=== PATIENT | male | born 1955 | race Caucasian/White ===

== ENCOUNTER 2023-04-20 13:46 | Inpatient (IN) | payer MEDICARE, OTHER ==
[2023-04-20] MEDS ORDERED: Non-Formulary Item 1 EACH (Oxycodone Hcl/Acetaminophen [Oxycodone-Acetaminophen 10-325] 1 PO PRN (15:24)
[2023-04-20] MEDS ORDERED: ACETAMINOPHEN PO PRN (15:24)
[2023-04-20] MEDS ORDERED: OXYCODONE HCL PO PRN (15:24)
[2023-04-20] MEDS ORDERED: [UNRECOGNIZED DRUG - OTHER] PO PRN (15:24)
[2023-04-20] MEDS ORDERED: Colchicine 0.6 MG TAB PO PRN (15:24)
[2023-04-20] MEDS ORDERED: cefTRIAXone (ROCEPHIN) 2 GM VIAL IVPB SCH (15:30)
[2023-04-20] MEDS ORDERED: Nystatin Powder 15 GM BOT TOP PRN (15:57)
[2023-04-20] MEDS ORDERED: Torsemide 20 MG TAB PO PRN (16:04)
[2023-04-20] MEDS: HYDROcodone/Acetaminophen 10/325 mg Tablet PO PRN (17:21)
[2023-04-20] MEDS: Apixaban 5 MG TAB PO SCH (19:59)
[2023-04-20] MEDS: Pregabalin 75 MG CAP PO SCH (20:01)
[2023-04-20] MEDS: Tamsulosin HCl 0.4 MG CAP PO SCH (20:03)
[2023-04-20] MEDS ORDERED: Methocarbamol 500 MG TAB PO SCH (21:00)
[2023-04-21] MEDS: HYDROcodone/Acetaminophen 10/325 mg Tablet PO PRN ×5 (00:36→19:50)
[2023-04-21 08:02] LABS: #Eosinphils 0.1 thou/uL (0.0-0.7); #Lymphocytes 1.8 thou/uL (1.20-3.40); #Monocytes 0.8 thou/uL (0.11-0.59); #Neutrophils 8.1 thou/uL (1.40-6.50); %Basophils 0.5 % (0.0-1.0); %Eosinophils 0.9 % (0.0-10.0); %Lymphocytes 16.8 % (21.0-51.0); %Monocytes 7.8 % (0.0-10.0); Hematocrit 37.1 % (42.0-52.0); Hemoglobin 11.7 g/dL (14.0-18.0); Mean Corpuscular HGB CONC 31.5 g/dL (32.0-36.0); Mean Corpuscular Hemoglobin 31.3 pg (27.0-31.0); Mean Corpuscular Volume 99.3 fl (78.0-98.0); Mean Platelet Volume 8.5 fL (7.4-10.4); Platelet Count 480 10x3/uL (130-400); RBC Distribution Width 14.5 % (11.5-14.5); Red Blood Cell (RBC) Count 3.73 mill/uL (4.70-6.10); White Blood Cell (WBC) Count 10.9 10x3/uL (4.8-10.8)
[2023-04-21 08:08] LABS: ALT (SGPT) 18 U/L (8-55); AST (SGOT) 15 U/L (5-34); Alkaline Phosphatase 105 U/L (40-110); Anion Gap 13 mmol/L (10-20); BUN (Urea Nitrogen) 19 mg/dL (8.4-25.7); Bilirubin, Total 0.4 mg/dL (0.2-1.2); CRP (Inflammatory) 10.69 mg/dL (= or < 0.5); Calc. Creatinine Clearance 121 mL/min (70-130); Calcium 9.2 mg/dL (7.8-10.44); Carbon Dioxide 28 mmol/L (23-31); Chloride 101 mmol/L (98-107); Estimated GFR 72; Globulin 3.8 g/dL (2.4-3.5); Glucose 89 mg/dL (80-115); Potassium 4.5 mmol/L (3.5-5.1); Protein, Total 6.8 g/dL (5.8-8.1); Sodium 137 mmol/L (136-145)
[2023-04-21] MEDS: cefTRIAXone\\ROCEPHIN 2 GM in Sodium Chloride 0.9% 100 ML IVPB SCH (08:42)
[2023-04-21] MEDS: Saccharomyces boulardii 250 MG CAP PO SCH (08:43)
[2023-04-21] MEDS: Methocarbamol 500 MG TAB PO SCH ×2 (08:43→19:51)
[2023-04-21] MEDS: Apixaban 5 MG TAB PO SCH ×2 (08:43→19:51)
[2023-04-21] MEDS: Ferrous Sulfate 325 MG TAB PO SCH (08:43)
[2023-04-21] MEDS: Polyethylene Glycol 3350 17 GM Packet PO PRN (10:05)
[2023-04-21] MEDS: Pregabalin 75 MG CAP PO SCH (19:50)
[2023-04-21] MEDS: Tamsulosin HCl 0.4 MG CAP PO SCH (19:51)
[2023-04-22] MEDS: HYDROcodone/Acetaminophen 10/325 mg Tablet PO PRN ×3 (01:50→12:26)
[2023-04-22] MEDS: Apixaban 5 MG TAB PO SCH ×2 (08:10→20:41)
[2023-04-22] MEDS: Ferrous Sulfate 325 MG TAB PO SCH (08:10)
[2023-04-22] MEDS: Saccharomyces boulardii 250 MG CAP PO SCH (08:10)
[2023-04-22] MEDS: Methocarbamol 500 MG TAB PO SCH ×2 (08:10→20:40)
[2023-04-22] MEDS: cefTRIAXone\\ROCEPHIN 2 GM in Sodium Chloride 0.9% 100 ML IVPB SCH (08:11)
[2023-04-22] MEDS: HYDROcodone/Acetaminophen 5/325 mg Tablet PO PRN ×2 (17:10→20:41)
[2023-04-22] MEDS: Pregabalin 75 MG CAP PO SCH (20:39)
[2023-04-22] MEDS: Tamsulosin HCl 0.4 MG CAP PO SCH (20:41)
[2023-04-23] MEDS: HYDROcodone/Acetaminophen 5/325 mg Tablet PO PRN (02:16)
[2023-04-23] MEDS: cefTRIAXone\\ROCEPHIN 2 GM in Sodium Chloride 0.9% 100 ML IVPB SCH (08:07)
[2023-04-23] MEDS: Apixaban 5 MG TAB PO SCH ×2 (08:08→22:49)
[2023-04-23] MEDS: Saccharomyces boulardii 250 MG CAP PO SCH (08:08)
[2023-04-23] MEDS: Methocarbamol 500 MG TAB PO SCH ×2 (08:08→22:49)
[2023-04-23] MEDS: Ferrous Sulfate 325 MG TAB PO SCH (08:08)
[2023-04-23] MEDS: HYDROcodone/Acetaminophen 10/325 mg Tablet PO PRN ×3 (08:14→21:40)
[2023-04-23] MEDS: Tamsulosin HCl 0.4 MG CAP PO SCH (22:48)
[2023-04-23] MEDS: Pregabalin 75 MG CAP PO SCH (22:48)
[2023-04-24] MEDS: HYDROcodone/Acetaminophen 10/325 mg Tablet PO PRN ×3 (05:40→18:11)
[2023-04-24 06:35] LABS: ALT (SGPT) 16 U/L (8-55); AST (SGOT) 14 U/L (5-34); Albumin 2.9 g/dL (3.4-4.8); Alkaline Phosphatase 116 U/L (40-110); Anion Gap 14 mmol/L (10-20); BUN (Urea Nitrogen) 16 mg/dL (8.4-25.7); Bilirubin, Total 0.4 mg/dL (0.2-1.2); Calc. Creatinine Clearance 126 mL/min (70-130); Calcium 9.2 mg/dL (7.8-10.44); Chloride 102 mmol/L (98-107); Estimated GFR 75; Globulin 3.6 g/dL (2.4-3.5); Glucose 89 mg/dL (80-115); Potassium 4.6 mmol/L (3.5-5.1); Protein, Total 6.5 g/dL (5.8-8.1); Sodium 139 mmol/L (136-145)
[2023-04-24 07:00] LABS: Carbon Dioxide 28 mmol/L (23-31)
[2023-04-24 07:16] LABS: CRP (Inflammatory) 7.37 mg/dL (= or < 0.5)
[2023-04-24 07:18] LABS: Hemoglobin 10.8 g/dL (14.0-18.0); Red Blood Cell (RBC) Count 3.36 mill/uL (4.70-6.10); White Blood Cell (WBC) Count 9.9 10x3/uL (4.8-10.8)
[2023-04-24 07:19] LABS: Hematocrit 33.2 % (42.0-52.0); Manual Diff?? YES; Mean Corpuscular HGB CONC 32.6 g/dL (32.0-36.0); Mean Corpuscular Hemoglobin 32.3 pg (27.0-31.0); Mean Corpuscular Volume 98.9 fl (78.0-98.0); Mean Platelet Volume 8.6 fL (7.4-10.4); Platelet Count 367 10x3/uL (130-400); RBC Distribution Width 14.6 % (11.5-14.5)
[2023-04-24 07:23] LABS: Band 2 % (5-11); Lymphocytes 14 % (21-51); MDiff Complete? YES
[2023-04-24 07:24] LABS: Eosinophils 1 % (0-10); Neutrophil 74 % (42-75)
[2023-04-24 07:25] LABS: Monocytes 9 % (0-10)
[2023-04-24 07:26] LABS: Anisocytosis SLIGHT = 6-15 cells (100X) (0-5/hpf); Platelet Adequacy Comment Appears Adequate
[2023-04-24] MEDS: Saccharomyces boulardii 250 MG CAP PO SCH (08:45)
[2023-04-24] MEDS: Apixaban 5 MG TAB PO SCH ×2 (08:45→21:12)
[2023-04-24] MEDS: Ferrous Sulfate 325 MG TAB PO SCH (08:45)
[2023-04-24] MEDS: Methocarbamol 500 MG TAB PO SCH ×2 (08:45→21:11)
[2023-04-24] MEDS: cefTRIAXone\\ROCEPHIN 2 GM in Sodium Chloride 0.9% 100 ML IVPB SCH (10:17)
[2023-04-24] MEDS: Pregabalin 75 MG CAP PO SCH (21:11)
[2023-04-24] MEDS: Tamsulosin HCl 0.4 MG CAP PO SCH (21:12)
[2023-04-25] MEDS: HYDROcodone/Acetaminophen 10/325 mg Tablet PO PRN ×3 (05:19→21:07)
[2023-04-25] MEDS: cefTRIAXone\\ROCEPHIN 2 GM in Sodium Chloride 0.9% 100 ML IVPB SCH (08:19)
[2023-04-25] MEDS: Apixaban 5 MG TAB PO SCH ×2 (08:20→20:56)
[2023-04-25] MEDS: Saccharomyces boulardii 250 MG CAP PO SCH (08:20)
[2023-04-25] MEDS: Ferrous Sulfate 325 MG TAB PO SCH (08:20)
[2023-04-25] MEDS: Methocarbamol 500 MG TAB PO SCH ×2 (08:20→20:56)
[2023-04-25] MEDS: Pregabalin 75 MG CAP PO SCH (20:56)
[2023-04-25] MEDS: Tamsulosin HCl 0.4 MG CAP PO SCH (20:56)
[2023-04-26] MEDS: HYDROcodone/Acetaminophen 10/325 mg Tablet PO PRN (05:22)
[2023-04-26] MEDS: cefTRIAXone\\ROCEPHIN 2 GM in Sodium Chloride 0.9% 100 ML IVPB SCH (08:43)
[2023-04-26] MEDS: Methocarbamol 500 MG TAB PO SCH ×2 (08:43→20:58)
[2023-04-26] MEDS: Apixaban 5 MG TAB PO SCH ×2 (08:43→20:58)
[2023-04-26] MEDS: Saccharomyces boulardii 250 MG CAP PO SCH (08:43)
[2023-04-26] MEDS: Ferrous Sulfate 325 MG TAB PO SCH (08:43)
[2023-04-26] MEDS: HYDROcodone/Acetaminophen 5/325 mg Tablet PO PRN ×2 (09:50→18:43)
[2023-04-26] MEDS: Tamsulosin HCl 0.4 MG CAP PO SCH (20:58)
[2023-04-26] MEDS: Pregabalin 75 MG CAP PO SCH (20:58)
[2023-04-27] MEDS: HYDROcodone/Acetaminophen 10/325 mg Tablet PO PRN ×2 (05:02→09:58)
[2023-04-27] MEDS: Methocarbamol 500 MG TAB PO SCH ×2 (08:38→20:11)
[2023-04-27] MEDS: Ferrous Sulfate 325 MG TAB PO SCH (08:38)
[2023-04-27] MEDS: Saccharomyces boulardii 250 MG CAP PO SCH (08:38)
[2023-04-27] MEDS: Apixaban 5 MG TAB PO SCH ×2 (08:38→20:11)
[2023-04-27] MEDS: cefTRIAXone\\ROCEPHIN 2 GM in Sodium Chloride 0.9% 100 ML IVPB SCH (08:39)
[2023-04-27] MEDS: Pregabalin 75 MG CAP PO SCH (20:10)
[2023-04-27] MEDS: HYDROcodone/Acetaminophen 5/325 mg Tablet PO PRN (20:11)
[2023-04-27] MEDS: Tamsulosin HCl 0.4 MG CAP PO SCH (20:12)
[2023-04-28] MEDS: HYDROcodone/Acetaminophen 10/325 mg Tablet PO PRN ×3 (05:20→21:13)
[2023-04-28] MEDS: Acetaminophen 325 MG TAB PO PRN (06:26)
[2023-04-28] MEDS: cefTRIAXone\\ROCEPHIN 2 GM in Sodium Chloride 0.9% 100 ML IVPB SCH (08:23)
[2023-04-28] MEDS: Apixaban 5 MG TAB PO SCH ×2 (08:24→20:03)
[2023-04-28] MEDS: Methocarbamol 500 MG TAB PO SCH ×2 (08:24→20:02)
[2023-04-28] MEDS: Saccharomyces boulardii 250 MG CAP PO SCH (08:24)
[2023-04-28] MEDS: Ferrous Sulfate 325 MG TAB PO SCH (08:24)
[2023-04-28] MEDS: Pregabalin 75 MG CAP PO SCH (20:02)
[2023-04-28] MEDS: Tamsulosin HCl 0.4 MG CAP PO SCH (20:03)
[2023-04-29] MEDS: cefTRIAXone\\ROCEPHIN 2 GM in Sodium Chloride 0.9% 100 ML IVPB SCH (08:33)
[2023-04-29] MEDS: Ferrous Sulfate 325 MG TAB PO SCH (08:34)
[2023-04-29] MEDS: Saccharomyces boulardii 250 MG CAP PO SCH (08:34)
[2023-04-29] MEDS: Methocarbamol 500 MG TAB PO SCH ×2 (08:34→20:43)
[2023-04-29] MEDS: Apixaban 5 MG TAB PO SCH ×2 (08:34→20:43)
[2023-04-29] MEDS: HYDROcodone/Acetaminophen 10/325 mg Tablet PO PRN ×2 (08:42→20:42)
[2023-04-29] MEDS: Pregabalin 75 MG CAP PO SCH (20:43)
[2023-04-29] MEDS: Tamsulosin HCl 0.4 MG CAP PO SCH (20:43)
[2023-04-30] MEDS: cefTRIAXone\\ROCEPHIN 2 GM in Sodium Chloride 0.9% 100 ML IVPB SCH (08:23)
[2023-04-30] MEDS: HYDROcodone/Acetaminophen 5/325 mg Tablet PO PRN (08:24)
[2023-04-30] MEDS: Apixaban 5 MG TAB PO SCH ×2 (08:25→21:23)
[2023-04-30] MEDS: Methocarbamol 500 MG TAB PO SCH ×2 (08:25→21:23)
[2023-04-30] MEDS: Saccharomyces boulardii 250 MG CAP PO SCH (08:25)
[2023-04-30] MEDS: Ferrous Sulfate 325 MG TAB PO SCH (08:25)
[2023-04-30] MEDS: Pregabalin 75 MG CAP PO SCH (21:23)
[2023-04-30] MEDS: Tamsulosin HCl 0.4 MG CAP PO SCH (21:23)
[2023-04-30] MEDS: HYDROcodone/Acetaminophen 10/325 mg Tablet PO PRN (21:24)
[2023-05-01 06:34] LABS: ALT (SGPT) 9 U/L (8-55); AST (SGOT) 10 U/L (5-34); Albumin 2.9 g/dL (3.4-4.8); Alkaline Phosphatase 135 U/L (40-110); Anion Gap 13 mmol/L (10-20); BUN (Urea Nitrogen) 11 mg/dL (8.4-25.7); Bilirubin, Total 0.5 mg/dL (0.2-1.2); CRP (Inflammatory) 6.07 mg/dL (= or < 0.5); Calc. Creatinine Clearance 142 mL/min (70-130); Calcium 9.3 mg/dL (7.8-10.44); Carbon Dioxide 36 mmol/L (23-31); Chloride 97 mmol/L (98-107); Estimated GFR 86; Globulin 3.7 g/dL (2.4-3.5); Glucose 97 mg/dL (80-115); Potassium 4.5 mmol/L (3.5-5.1); Protein, Total 6.6 g/dL (5.8-8.1); Sodium 141 mmol/L (136-145)
[2023-05-01 06:38] LABS: Band 4 % (5-11); Eosinophils 1 % (0-10); Hematocrit 31.6 % (42.0-52.0); Hemoglobin 9.8 g/dL (14.0-18.0); Lymphocytes 16 % (21-51); MDiff Complete? YES; Mean Corpuscular HGB CONC 31.1 g/dL (32.0-36.0); Mean Corpuscular Hemoglobin 31.1 pg (27.0-31.0); Mean Corpuscular Volume 100.1 fl (78.0-98.0); Monocytes 6 % (0-10); Neutrophil 73 % (42-75); Platelet Adequacy Comment Appears Adequate; Platelet Count 262 10x3/uL (130-400); Polychromasia SLIGHT = 2-3 cells (100X) (0-2/hpf); RBC Distribution Width 15.2 % (11.5-14.5); Red Blood Cell (RBC) Count 3.16 mill/uL (4.70-6.10); White Blood Cell (WBC) Count 7.7 10x3/uL (4.8-10.8)
[2023-05-01] MEDS: cefTRIAXone\\ROCEPHIN 2 GM in Sodium Chloride 0.9% 100 ML IVPB SCH (08:28)
[2023-05-01] MEDS: HYDROcodone/Acetaminophen 5/325 mg Tablet PO PRN ×2 (08:30→21:21)
[2023-05-01] MEDS: Polyethylene Glycol 3350 17 GM Packet PO PRN (08:30)
[2023-05-01] MEDS: Apixaban 5 MG TAB PO SCH ×2 (08:30→21:21)
[2023-05-01] MEDS: Ferrous Sulfate 325 MG TAB PO SCH (08:30)
[2023-05-01] MEDS: Methocarbamol 500 MG TAB PO SCH ×2 (08:30→21:21)
[2023-05-01] MEDS: Saccharomyces boulardii 250 MG CAP PO SCH (08:30)
[2023-05-01] MEDS: Budesonide 0.5 MG/2 ML NEB NEB SCH (19:40)
[2023-05-01] MEDS: Tamsulosin HCl 0.4 MG CAP PO SCH (21:20)
[2023-05-01] MEDS: Pregabalin 75 MG CAP PO SCH (21:20)
[2023-05-01] MEDS: predniSONE 20 MG TAB PO SCH (21:21)
[2023-05-02] MEDS ORDERED: Torsemide 20 MG TAB PO SCH (01:15)
[2023-05-02] MEDS: Acetaminophen 325 MG TAB PO PRN (02:33)
[2023-05-02] MEDS: Budesonide 0.5 MG/2 ML NEB NEB SCH ×2 (08:13→21:21)
[2023-05-02] MEDS: Saccharomyces boulardii 250 MG CAP PO SCH (08:26)
[2023-05-02] MEDS: Ferrous Sulfate 325 MG TAB PO SCH (08:26)
[2023-05-02] MEDS: Apixaban 5 MG TAB PO SCH ×2 (08:26→21:21)
[2023-05-02] MEDS: predniSONE 20 MG TAB PO SCH ×2 (08:26→21:20)
[2023-05-02] MEDS: Torsemide 20 MG TAB PO SCH (08:27)
[2023-05-02] MEDS: cefTRIAXone\\ROCEPHIN 2 GM in Sodium Chloride 0.9% 100 ML IVPB SCH (08:28)
[2023-05-02] MEDS ORDERED: Mag-Al Plus 1200/1200/120 MG (30 mL) UDCUP PO PRN ×2 (08:37→08:42)
[2023-05-02] MEDS: Methocarbamol 500 MG TAB PO SCH ×2 (11:35→21:21)
[2023-05-02] MEDS: Pregabalin 75 MG CAP PO SCH (21:19)
[2023-05-02] MEDS: Tamsulosin HCl 0.4 MG CAP PO SCH (21:21)
[2023-05-02] MEDS: HYDROcodone/Acetaminophen 10/325 mg Tablet PO PRN (21:22)
[2023-05-03] MEDS: HYDROcodone/Acetaminophen 5/325 mg Tablet PO PRN (05:27)
[2023-05-03] MEDS: Apixaban 5 MG TAB PO SCH ×2 (08:07→20:24)
[2023-05-03] MEDS: Ferrous Sulfate 325 MG TAB PO SCH (08:07)
[2023-05-03] MEDS: Torsemide 20 MG TAB PO SCH (08:07)
[2023-05-03] MEDS: Saccharomyces boulardii 250 MG CAP PO SCH (08:08)
[2023-05-03] MEDS: Methocarbamol 500 MG TAB PO SCH ×2 (08:08→20:24)
[2023-05-03] MEDS: predniSONE 20 MG TAB PO SCH ×2 (08:08→20:24)
[2023-05-03] MEDS: cefTRIAXone\\ROCEPHIN 2 GM in Sodium Chloride 0.9% 100 ML IVPB SCH (08:08)
[2023-05-03] MEDS: Budesonide 0.5 MG/2 ML NEB NEB SCH ×2 (08:20→20:25)
[2023-05-03] MEDS: Polyethylene Glycol 3350 17 GM Packet PO PRN (09:03)
[2023-05-03] MEDS ORDERED: Torsemide 20 MG TAB PO SCH (13:00)
[2023-05-03] MEDS: HYDROcodone/Acetaminophen 10/325 mg Tablet PO PRN (20:23)
[2023-05-03] MEDS: Pregabalin 75 MG CAP PO SCH (20:23)
[2023-05-03] MEDS: Tamsulosin HCl 0.4 MG CAP PO SCH (20:24)
[2023-05-04] MEDS: HYDROcodone/Acetaminophen 10/325 mg Tablet PO PRN ×2 (05:32→20:25)
[2023-05-04 06:11] LABS: Anion Gap 20 mmol/L (10-20); BUN (Urea Nitrogen) 22 mg/dL (8.4-25.7); Calc. Creatinine Clearance 121 mL/min (70-130); Calcium 9.2 mg/dL (7.8-10.44); Carbon Dioxide 33 mmol/L (23-31); Estimated GFR 74; Glucose 145 mg/dL (80-115)
[2023-05-04 06:19] LABS: Chloride 91 mmol/L (98-107); Sodium 139 mmol/L (136-145)
[2023-05-04] MEDS: cefTRIAXone\\ROCEPHIN 2 GM in Sodium Chloride 0.9% 100 ML IVPB SCH (08:00)
[2023-05-04] MEDS: Apixaban 5 MG TAB PO SCH ×2 (08:01→20:26)
[2023-05-04] MEDS: Saccharomyces boulardii 250 MG CAP PO SCH (08:01)
[2023-05-04] MEDS: predniSONE 20 MG TAB PO SCH ×2 (08:01→20:26)
[2023-05-04] MEDS: Methocarbamol 500 MG TAB PO SCH ×2 (08:01→20:26)
[2023-05-04] MEDS: Ferrous Sulfate 325 MG TAB PO SCH (08:01)
[2023-05-04] MEDS: Budesonide 0.5 MG/2 ML NEB NEB SCH ×2 (08:06→20:26)
[2023-05-04] MEDS: Torsemide 20 MG TAB PO SCH ×2 (08:09→13:52)
[2023-05-04] MEDS: Pregabalin 75 MG CAP PO SCH (20:24)
[2023-05-04] MEDS: Tamsulosin HCl 0.4 MG CAP PO SCH (20:26)
[2023-05-05] MEDS: HYDROcodone/Acetaminophen 10/325 mg Tablet PO PRN ×2 (05:28→20:03)
[2023-05-05] MEDS: Saccharomyces boulardii 250 MG CAP PO SCH (09:01)
[2023-05-05] MEDS: Budesonide 0.5 MG/2 ML NEB NEB SCH ×2 (09:01→20:02)
[2023-05-05] MEDS: predniSONE 20 MG TAB PO SCH ×2 (09:01→20:04)
[2023-05-05] MEDS: Methocarbamol 500 MG TAB PO SCH ×2 (09:02→20:04)
[2023-05-05] MEDS: Torsemide 20 MG TAB PO SCH ×2 (09:02→15:57)
[2023-05-05] MEDS: cefTRIAXone\\ROCEPHIN 2 GM in Sodium Chloride 0.9% 100 ML IVPB SCH (09:02)
[2023-05-05] MEDS: Apixaban 5 MG TAB PO SCH ×2 (09:03→20:04)
[2023-05-05] MEDS: Ferrous Sulfate 325 MG TAB PO SCH (09:03)
[2023-05-05] MEDS: Polyethylene Glycol 3350 17 GM Packet PO PRN (13:37)
[2023-05-05] MEDS: Pregabalin 75 MG CAP PO SCH (20:03)
[2023-05-05] MEDS: Tamsulosin HCl 0.4 MG CAP PO SCH (20:03)
[2023-05-06] MEDS: HYDROcodone/Acetaminophen 5/325 mg Tablet PO PRN ×2 (06:12→21:35)
[2023-05-06] MEDS: cefTRIAXone\\ROCEPHIN 2 GM in Sodium Chloride 0.9% 100 ML IVPB SCH (09:34)
[2023-05-06] MEDS: predniSONE 20 MG TAB PO SCH (09:35)
[2023-05-06] MEDS: Budesonide 0.5 MG/2 ML NEB NEB SCH ×2 (09:36→20:54)
[2023-05-06] MEDS: Apixaban 5 MG TAB PO SCH ×2 (09:36→20:53)
[2023-05-06] MEDS: Methocarbamol 500 MG TAB PO SCH ×2 (09:37→20:53)
[2023-05-06] MEDS: Ferrous Sulfate 325 MG TAB PO SCH (09:37)
[2023-05-06] MEDS: Torsemide 20 MG TAB PO SCH ×2 (09:38→14:14)
[2023-05-06] MEDS: Saccharomyces boulardii 250 MG CAP PO SCH (09:38)
[2023-05-06] MEDS: HYDROcodone/Acetaminophen 10/325 mg Tablet PO PRN (11:08)
[2023-05-06] MEDS: Pregabalin 75 MG CAP PO SCH (20:53)
[2023-05-06] MEDS: Tamsulosin HCl 0.4 MG CAP PO SCH (20:53)
[2023-05-07] MEDS: HYDROcodone/Acetaminophen 5/325 mg Tablet PO PRN ×2 (05:32→20:18)
[2023-05-07 05:37] LABS: Hematocrit 35.7 % (42.0-52.0); Hemoglobin 11.3 g/dL (14.0-18.0); Platelet Count 235 10x3/uL (130-400)
[2023-05-07] MEDS: cefTRIAXone\\ROCEPHIN 2 GM in Sodium Chloride 0.9% 100 ML IVPB SCH (08:37)
[2023-05-07] MEDS: Methocarbamol 500 MG TAB PO SCH ×2 (08:39→20:17)
[2023-05-07] MEDS: Apixaban 5 MG TAB PO SCH ×2 (08:39→20:17)
[2023-05-07] MEDS: Saccharomyces boulardii 250 MG CAP PO SCH (08:39)
[2023-05-07] MEDS: Budesonide 0.5 MG/2 ML NEB NEB SCH ×2 (08:39→20:19)
[2023-05-07] MEDS: Ferrous Sulfate 325 MG TAB PO SCH (08:40)
[2023-05-07] MEDS: Torsemide 20 MG TAB PO SCH ×2 (08:40→13:42)
[2023-05-07] MEDS: Pregabalin 75 MG CAP PO SCH (20:17)
[2023-05-07] MEDS: Tamsulosin HCl 0.4 MG CAP PO SCH (20:18)
[2023-05-08] MEDS: Torsemide 20 MG TAB PO SCH ×2 (05:45→14:21)
[2023-05-08] MEDS: HYDROcodone/Acetaminophen 10/325 mg Tablet PO PRN ×2 (05:48→18:23)
[2023-05-08] MEDS: Budesonide 0.5 MG/2 ML NEB NEB SCH ×2 (08:20→20:01)
[2023-05-08] MEDS: Apixaban 5 MG TAB PO SCH ×2 (08:22→20:02)
[2023-05-08] MEDS: Saccharomyces boulardii 250 MG CAP PO SCH (08:22)
[2023-05-08] MEDS: cefTRIAXone\\ROCEPHIN 2 GM in Sodium Chloride 0.9% 100 ML IVPB SCH (08:22)
[2023-05-08] MEDS: Ferrous Sulfate 325 MG TAB PO SCH (08:22)
[2023-05-08] MEDS: Methocarbamol 500 MG TAB PO SCH ×2 (08:22→20:02)
[2023-05-08] MEDS: Pregabalin 75 MG CAP PO SCH (20:01)
[2023-05-08] MEDS: Tamsulosin HCl 0.4 MG CAP PO SCH (20:01)
[2023-05-09] MEDS: HYDROcodone/Acetaminophen 10/325 mg Tablet PO PRN (06:03)
[2023-05-09] MEDS: Torsemide 20 MG TAB PO SCH ×2 (06:03→14:02)
[2023-05-09 06:06] LABS: Hematocrit 36.9 % (42.0-52.0); Hemoglobin 11.8 g/dL (14.0-18.0); Mean Corpuscular HGB CONC 32.1 g/dL (32.0-36.0); Mean Corpuscular Hemoglobin 31.3 pg (27.0-31.0); Mean Corpuscular Volume 97.4 fl (78.0-98.0); Mean Platelet Volume 10.3 fL (7.4-10.4); Platelet Count 225 10x3/uL (130-400); RBC Distribution Width 14.5 % (11.5-14.5); Red Blood Cell (RBC) Count 3.79 mill/uL (4.70-6.10); White Blood Cell (WBC) Count 10.9 10x3/uL (4.8-10.8)
[2023-05-09 06:22] LABS: ALT (SGPT) 29 U/L (8-55); AST (SGOT) 14 U/L (5-34); Albumin 3.1 g/dL (3.4-4.8); Alkaline Phosphatase 109 U/L (40-110); BUN (Urea Nitrogen) 27 mg/dL (8.4-25.7); Bilirubin, Total 0.4 mg/dL (0.2-1.2); Calc. Creatinine Clearance 110 mL/min (70-130); Estimated GFR 70; Globulin 2.9 g/dL (2.4-3.5); Glucose 103 mg/dL (80-115)
[2023-05-09 06:31] LABS: Carbon Dioxide 33 mmol/L (23-31)
[2023-05-09 06:36] LABS: Chloride 89 mmol/L (98-107); Potassium 3.7 mmol/L (3.5-5.1); Sodium 139 mmol/L (136-145)
[2023-05-09 06:37] LABS: Anion Gap 21 mmol/L (10-20)
[2023-05-09] MEDS: Apixaban 5 MG TAB PO SCH ×2 (08:13→20:36)
[2023-05-09] MEDS: cefTRIAXone\\ROCEPHIN 2 GM in Sodium Chloride 0.9% 100 ML IVPB SCH (08:13)
[2023-05-09] MEDS: Ferrous Sulfate 325 MG TAB PO SCH (08:13)
[2023-05-09] MEDS: Saccharomyces boulardii 250 MG CAP PO SCH (08:13)
[2023-05-09] MEDS: Budesonide 0.5 MG/2 ML NEB NEB SCH ×2 (08:13→20:36)
[2023-05-09] MEDS: Methocarbamol 500 MG TAB PO SCH ×2 (08:14→20:36)
[2023-05-09] MEDS: Polyethylene Glycol 3350 17 GM Packet PO PRN (08:32)
[2023-05-09] MEDS: HYDROcodone/Acetaminophen 5/325 mg Tablet PO PRN (20:35)
[2023-05-09] MEDS: Pregabalin 75 MG CAP PO SCH (20:35)
[2023-05-09] MEDS: Tamsulosin HCl 0.4 MG CAP PO SCH (20:36)
[2023-05-10] MEDS: HYDROcodone/Acetaminophen 5/325 mg Tablet PO PRN (05:29)
[2023-05-10] MEDS: Torsemide 20 MG TAB PO SCH ×2 (05:31→13:54)
[2023-05-10] MEDS: Budesonide 0.5 MG/2 ML NEB NEB SCH ×2 (08:03→20:10)
[2023-05-10] MEDS: cefTRIAXone\\ROCEPHIN 2 GM in Sodium Chloride 0.9% 100 ML IVPB SCH (08:04)
[2023-05-10] MEDS: Ferrous Sulfate 325 MG TAB PO SCH (08:05)
[2023-05-10] MEDS: Methocarbamol 500 MG TAB PO SCH ×2 (08:05→20:02)
[2023-05-10] MEDS: Saccharomyces boulardii 250 MG CAP PO SCH (08:05)
[2023-05-10] MEDS: Apixaban 5 MG TAB PO SCH ×2 (08:05→20:02)
[2023-05-10] MEDS: Tamsulosin HCl 0.4 MG CAP PO SCH (20:02)
[2023-05-10] MEDS: HYDROcodone/Acetaminophen 10/325 mg Tablet PO PRN (20:03)
[2023-05-10] MEDS: Pregabalin 75 MG CAP PO SCH (20:03)
[2023-05-11] MEDS: HYDROcodone/Acetaminophen 10/325 mg Tablet PO PRN ×3 (05:59→20:34)
[2023-05-11] MEDS: Torsemide 20 MG TAB PO SCH ×2 (05:59→14:14)
[2023-05-11] MEDS: Saccharomyces boulardii 250 MG CAP PO SCH (07:55)
[2023-05-11] MEDS: Budesonide 0.5 MG/2 ML NEB NEB SCH ×2 (07:55→20:33)
[2023-05-11] MEDS: Ferrous Sulfate 325 MG TAB PO SCH (07:55)
[2023-05-11] MEDS: Apixaban 5 MG TAB PO SCH ×2 (07:55→20:33)
[2023-05-11] MEDS: Methocarbamol 500 MG TAB PO SCH ×2 (07:55→20:33)
[2023-05-11] MEDS: cefTRIAXone\\ROCEPHIN 2 GM in Sodium Chloride 0.9% 100 ML IVPB SCH (07:55)
[2023-05-11] MEDS: Pregabalin 75 MG CAP PO SCH (20:33)
[2023-05-11] MEDS: Tamsulosin HCl 0.4 MG CAP PO SCH (20:33)
[2023-05-12] MEDS: Torsemide 20 MG TAB PO SCH ×2 (05:49→13:27)
[2023-05-12] MEDS: HYDROcodone/Acetaminophen 10/325 mg Tablet PO PRN ×2 (05:49→20:12)
[2023-05-12] MEDS: Methocarbamol 500 MG TAB PO SCH ×2 (07:50→20:12)
[2023-05-12] MEDS: Saccharomyces boulardii 250 MG CAP PO SCH (07:50)
[2023-05-12] MEDS: Ferrous Sulfate 325 MG TAB PO SCH (07:50)
[2023-05-12] MEDS: Apixaban 5 MG TAB PO SCH ×2 (07:51→20:12)
[2023-05-12] MEDS: cefTRIAXone\\ROCEPHIN 2 GM in Sodium Chloride 0.9% 100 ML IVPB SCH (07:51)
[2023-05-12] MEDS: Budesonide 0.5 MG/2 ML NEB NEB SCH ×2 (07:51→20:13)
[2023-05-12] MEDS ORDERED: Keri Lotion 15 oz BOT TOP PRN (18:48)
[2023-05-12] MEDS: Tamsulosin HCl 0.4 MG CAP PO SCH (20:12)
[2023-05-12] MEDS: Pregabalin 75 MG CAP PO SCH (20:12)
[2023-05-13] MEDS: HYDROcodone/Acetaminophen 10/325 mg Tablet PO PRN ×2 (05:43→20:13)
[2023-05-13] MEDS: Torsemide 20 MG TAB PO SCH ×2 (05:43→14:13)
[2023-05-13] MEDS: Apixaban 5 MG TAB PO SCH ×2 (08:31→20:13)
[2023-05-13] MEDS: Ferrous Sulfate 325 MG TAB PO SCH (08:31)
[2023-05-13] MEDS: Polyethylene Glycol 3350 17 GM Packet PO PRN (08:31)
[2023-05-13] MEDS: Budesonide 0.5 MG/2 ML NEB NEB SCH ×2 (08:31→20:13)
[2023-05-13] MEDS: Saccharomyces boulardii 250 MG CAP PO SCH (08:31)
[2023-05-13] MEDS: cefTRIAXone\\ROCEPHIN 2 GM in Sodium Chloride 0.9% 100 ML IVPB SCH (08:31)
[2023-05-13] MEDS: Methocarbamol 500 MG TAB PO SCH ×2 (08:31→20:13)
[2023-05-13] MEDS: Pregabalin 75 MG CAP PO SCH (20:13)
[2023-05-13] MEDS: Tamsulosin HCl 0.4 MG CAP PO SCH (20:13)
[2023-05-14] MEDS: Torsemide 20 MG TAB PO SCH ×2 (05:14→15:07)
[2023-05-14] MEDS: HYDROcodone/Acetaminophen 10/325 mg Tablet PO PRN ×3 (05:14→20:07)
[2023-05-14] MEDS: Polyethylene Glycol 3350 17 GM Packet PO PRN (09:26)
[2023-05-14] MEDS: Saccharomyces boulardii 250 MG CAP PO SCH (09:26)
[2023-05-14] MEDS: Apixaban 5 MG TAB PO SCH ×2 (09:26→20:06)
[2023-05-14] MEDS: Budesonide 0.5 MG/2 ML NEB NEB SCH ×2 (09:26→20:07)
[2023-05-14] MEDS: cefTRIAXone\\ROCEPHIN 2 GM in Sodium Chloride 0.9% 100 ML IVPB SCH (09:26)
[2023-05-14] MEDS: Ferrous Sulfate 325 MG TAB PO SCH (09:26)
[2023-05-14] MEDS: Methocarbamol 500 MG TAB PO SCH ×2 (09:26→20:07)
[2023-05-14] MEDS: Pregabalin 75 MG CAP PO SCH (20:06)
[2023-05-14] MEDS: Tamsulosin HCl 0.4 MG CAP PO SCH (20:06)
[2023-05-15] MEDS: HYDROcodone/Acetaminophen 10/325 mg Tablet PO PRN ×3 (05:28→19:54)
[2023-05-15] MEDS: Torsemide 20 MG TAB PO SCH ×2 (05:29→14:20)
[2023-05-15 05:50] LABS: Hematocrit 33.4 % (42.0-52.0); Hemoglobin 10.9 g/dL (14.0-18.0); Mean Corpuscular HGB CONC 32.8 g/dL (32.0-36.0); Mean Corpuscular Hemoglobin 31.3 pg (27.0-31.0); Mean Corpuscular Volume 95.7 fl (78.0-98.0); Mean Platelet Volume 10.9 fL (7.4-10.4); Platelet Count 226 10x3/uL (130-400); RBC Distribution Width 14.1 % (11.5-14.5); Red Blood Cell (RBC) Count 3.49 mill/uL (4.70-6.10); White Blood Cell (WBC) Count 10.9 10x3/uL (4.8-10.8)
[2023-05-15 06:13] LABS: Anion Gap 19 mmol/L (10-20); BUN (Urea Nitrogen) 18 mg/dL (8.4-25.7); CRP (Inflammatory) 15.97 mg/dL (= or < 0.5); Calc. Creatinine Clearance 119 mL/min (70-130); Calcium 9.4 mg/dL (7.8-10.44); Carbon Dioxide 30 mmol/L (23-31); Estimated GFR 77; Glucose 98 mg/dL (80-115)
[2023-05-15 06:44] LABS: Chloride 93 mmol/L (98-107); Potassium 3.7 mmol/L (3.5-5.1); Sodium 138 mmol/L (136-145)
[2023-05-15] MEDS: Polyethylene Glycol 3350 17 GM Packet PO PRN (08:36)
[2023-05-15] MEDS: Apixaban 5 MG TAB PO SCH ×2 (08:36→20:01)
[2023-05-15] MEDS: Saccharomyces boulardii 250 MG CAP PO SCH (08:36)
[2023-05-15] MEDS: Methocarbamol 500 MG TAB PO SCH ×2 (08:36→20:01)
[2023-05-15] MEDS: cefTRIAXone\\ROCEPHIN 2 GM in Sodium Chloride 0.9% 100 ML IVPB SCH (08:36)
[2023-05-15] MEDS: Ferrous Sulfate 325 MG TAB PO SCH (08:36)
[2023-05-15] MEDS: Budesonide 0.5 MG/2 ML NEB NEB SCH ×2 (08:36→19:59)
[2023-05-15] MEDS: Pregabalin 75 MG CAP PO SCH (20:00)
[2023-05-15] MEDS: Tamsulosin HCl 0.4 MG CAP PO SCH (20:01)
[2023-05-16] MEDS: HYDROcodone/Acetaminophen 10/325 mg Tablet PO PRN ×2 (04:50→20:24)
[2023-05-16] MEDS: Torsemide 20 MG TAB PO SCH ×2 (04:55→14:07)
[2023-05-16] MEDS: cefTRIAXone\\ROCEPHIN 2 GM in Sodium Chloride 0.9% 100 ML IVPB SCH (08:25)
[2023-05-16] MEDS: Apixaban 5 MG TAB PO SCH ×2 (08:26→20:25)
[2023-05-16] MEDS: Budesonide 0.5 MG/2 ML NEB NEB SCH ×2 (08:26→20:25)
[2023-05-16] MEDS: Polyethylene Glycol 3350 17 GM Packet PO PRN (08:26)
[2023-05-16] MEDS: Ferrous Sulfate 325 MG TAB PO SCH (08:27)
[2023-05-16] MEDS: Methocarbamol 500 MG TAB PO SCH ×2 (08:27→20:25)
[2023-05-16] MEDS: Saccharomyces boulardii 250 MG CAP PO SCH (08:28)
[2023-05-16] MEDS: HYDROcodone/Acetaminophen 5/325 mg Tablet PO PRN (14:07)
[2023-05-16] MEDS: Pregabalin 75 MG CAP PO SCH (20:25)
[2023-05-16] MEDS: Tamsulosin HCl 0.4 MG CAP PO SCH (20:25)
[2023-05-17] MEDS: Torsemide 20 MG TAB PO SCH ×2 (05:00→14:40)
[2023-05-17] MEDS: HYDROcodone/Acetaminophen 10/325 mg Tablet PO PRN ×3 (05:00→19:58)
[2023-05-17] MEDS: Methocarbamol 500 MG TAB PO SCH ×2 (08:40→19:58)
[2023-05-17] MEDS: Apixaban 5 MG TAB PO SCH ×2 (08:40→19:58)
[2023-05-17] MEDS: cefTRIAXone\\ROCEPHIN 2 GM in Sodium Chloride 0.9% 100 ML IVPB SCH (08:40)
[2023-05-17] MEDS: Ferrous Sulfate 325 MG TAB PO SCH (08:40)
[2023-05-17] MEDS: Saccharomyces boulardii 250 MG CAP PO SCH (08:40)
[2023-05-17] MEDS: Budesonide 0.5 MG/2 ML NEB NEB SCH ×2 (08:40→19:58)
[2023-05-17] MEDS: Tamsulosin HCl 0.4 MG CAP PO SCH (19:58)
[2023-05-17] MEDS: Pregabalin 75 MG CAP PO SCH (19:59)
[2023-05-18] MEDS: Torsemide 20 MG TAB PO SCH ×2 (05:19→14:43)
[2023-05-18] MEDS: HYDROcodone/Acetaminophen 10/325 mg Tablet PO PRN ×2 (05:19→20:15)
[2023-05-18] MEDS: Polyethylene Glycol 3350 17 GM Packet PO PRN (07:55)
[2023-05-18] MEDS: Budesonide 0.5 MG/2 ML NEB NEB SCH ×2 (07:59→20:16)
[2023-05-18] MEDS: cefTRIAXone\\ROCEPHIN 2 GM in Sodium Chloride 0.9% 100 ML IVPB SCH (07:59)
[2023-05-18] MEDS: Ferrous Sulfate 325 MG TAB PO SCH (07:59)
[2023-05-18] MEDS: Apixaban 5 MG TAB PO SCH ×2 (08:00→20:15)
[2023-05-18] MEDS: Methocarbamol 500 MG TAB PO SCH ×2 (08:00→20:15)
[2023-05-18] MEDS: Saccharomyces boulardii 250 MG CAP PO SCH (08:00)
[2023-05-18] MEDS: HYDROcodone/Acetaminophen 5/325 mg Tablet PO PRN (14:46)
[2023-05-18] MEDS: Pregabalin 75 MG CAP PO SCH (20:15)
[2023-05-18] MEDS: Tamsulosin HCl 0.4 MG CAP PO SCH (20:15)
[2023-05-19] MEDS: HYDROcodone/Acetaminophen 10/325 mg Tablet PO PRN ×2 (04:53→20:29)
[2023-05-19] MEDS: Torsemide 20 MG TAB PO SCH ×2 (05:01→13:56)
[2023-05-19] MEDS: Saccharomyces boulardii 250 MG CAP PO SCH (08:12)
[2023-05-19] MEDS: Ferrous Sulfate 325 MG TAB PO SCH (08:12)
[2023-05-19] MEDS: Budesonide 0.5 MG/2 ML NEB NEB SCH ×2 (08:12→20:28)
[2023-05-19] MEDS: Apixaban 5 MG TAB PO SCH ×2 (08:12→20:27)
[2023-05-19] MEDS: cefTRIAXone\\ROCEPHIN 2 GM in Sodium Chloride 0.9% 100 ML IVPB SCH (08:12)
[2023-05-19] MEDS: Methocarbamol 500 MG TAB PO SCH ×2 (08:12→20:27)
[2023-05-19] MEDS: HYDROcodone/Acetaminophen 5/325 mg Tablet PO PRN (13:56)
[2023-05-19] MEDS: Tamsulosin HCl 0.4 MG CAP PO SCH (20:27)
[2023-05-19] MEDS: Pregabalin 75 MG CAP PO SCH (20:27)
[2023-05-20] MEDS: HYDROcodone/Acetaminophen 10/325 mg Tablet PO PRN ×2 (05:21→20:26)
[2023-05-20] MEDS: Torsemide 20 MG TAB PO SCH ×2 (05:21→14:33)
[2023-05-20] MEDS: Budesonide 0.5 MG/2 ML NEB NEB SCH ×2 (07:59→20:13)
[2023-05-20] MEDS: cefTRIAXone\\ROCEPHIN 2 GM in Sodium Chloride 0.9% 100 ML IVPB SCH (07:59)
[2023-05-20] MEDS: Saccharomyces boulardii 250 MG CAP PO SCH (08:00)
[2023-05-20] MEDS: Methocarbamol 500 MG TAB PO SCH ×2 (08:00→20:12)
[2023-05-20] MEDS: Ferrous Sulfate 325 MG TAB PO SCH (08:00)
[2023-05-20] MEDS: Apixaban 5 MG TAB PO SCH ×2 (08:00→20:12)
[2023-05-20] MEDS: Polyethylene Glycol 3350 17 GM Packet PO PRN (10:44)
[2023-05-20] MEDS: Pregabalin 75 MG CAP PO SCH (20:11)
[2023-05-20] MEDS: Tamsulosin HCl 0.4 MG CAP PO SCH (20:25)
[2023-05-21] MEDS: Torsemide 20 MG TAB PO SCH ×2 (05:48→14:09)
[2023-05-21] MEDS: HYDROcodone/Acetaminophen 10/325 mg Tablet PO PRN (05:48)
[2023-05-21] MEDS: Apixaban 5 MG TAB PO SCH ×2 (08:17→20:13)
[2023-05-21] MEDS: Methocarbamol 500 MG TAB PO SCH ×2 (08:17→20:13)
[2023-05-21] MEDS: Budesonide 0.5 MG/2 ML NEB NEB SCH ×2 (08:17→20:13)
[2023-05-21] MEDS: Ferrous Sulfate 325 MG TAB PO SCH (08:17)
[2023-05-21] MEDS: Saccharomyces boulardii 250 MG CAP PO SCH (08:17)
[2023-05-21] MEDS: cefTRIAXone\\ROCEPHIN 2 GM in Sodium Chloride 0.9% 100 ML IVPB SCH (08:17)
[2023-05-21] MEDS: Tamsulosin HCl 0.4 MG CAP PO SCH (20:13)
[2023-05-21] MEDS: Pregabalin 75 MG CAP PO SCH (20:13)
[2023-05-21] MEDS: HYDROcodone/Acetaminophen 5/325 mg Tablet PO PRN (20:14)
[2023-05-22 05:19] LABS: Hematocrit 34.9 % (42.0-52.0); Hemoglobin 10.9 g/dL (14.0-18.0); Mean Corpuscular HGB CONC 31.2 g/dL (32.0-36.0); Mean Corpuscular Hemoglobin 29.9 pg (27.0-31.0); Mean Corpuscular Volume 95.8 fl (78.0-98.0); Mean Platelet Volume 9.2 fL (7.4-10.4); Platelet Count 275 10x3/uL (130-400); RBC Distribution Width 14.1 % (11.5-14.5); Red Blood Cell (RBC) Count 3.65 mill/uL (4.70-6.10); White Blood Cell (WBC) Count 8.1 10x3/uL (4.8-10.8)
[2023-05-22] MEDS: Torsemide 20 MG TAB PO SCH ×2 (05:19→14:24)
[2023-05-22] MEDS: HYDROcodone/Acetaminophen 5/325 mg Tablet PO PRN (05:19)
[2023-05-22 05:21] LABS: Hematocrit 33.8 % (42.0-52.0); Hemoglobin 10.9 g/dL (14.0-18.0); Platelet Count 276 10x3/uL (130-400)
[2023-05-22 05:30] LABS: Anion Gap 13 mmol/L (10-20); BUN (Urea Nitrogen) 18 mg/dL (8.4-25.7); CRP (Inflammatory) 4.71 mg/dL (= or < 0.5); Calc. Creatinine Clearance 103 mL/min (70-130); Calcium 9.5 mg/dL (7.8-10.44); Carbon Dioxide 32 mmol/L (23-31); Chloride 99 mmol/L (98-107); Estimated GFR 64; Glucose 100 mg/dL (80-115); Potassium 4.1 mmol/L (3.5-5.1); Sodium 140 mmol/L (136-145)
[2023-05-22] MEDS: Budesonide 0.5 MG/2 ML NEB NEB SCH ×2 (08:02→20:49)
[2023-05-22] MEDS: Ferrous Sulfate 325 MG TAB PO SCH (08:03)
[2023-05-22] MEDS: Saccharomyces boulardii 250 MG CAP PO SCH (08:03)
[2023-05-22] MEDS: Methocarbamol 500 MG TAB PO SCH ×2 (08:03→20:49)
[2023-05-22] MEDS: cefTRIAXone\\ROCEPHIN 2 GM in Sodium Chloride 0.9% 100 ML IVPB SCH (08:03)
[2023-05-22] MEDS: Apixaban 5 MG TAB PO SCH ×2 (08:03→20:49)
[2023-05-22] MEDS: Polyethylene Glycol 3350 17 GM Packet PO PRN (14:24)
[2023-05-22] MEDS: Tamsulosin HCl 0.4 MG CAP PO SCH (20:49)
[2023-05-22] MEDS: HYDROcodone/Acetaminophen 10/325 mg Tablet PO PRN (20:50)
[2023-05-22] MEDS: Pregabalin 75 MG CAP PO SCH (20:50)
[2023-05-23] MEDS: HYDROcodone/Acetaminophen 10/325 mg Tablet PO PRN ×3 (01:38→20:07)
[2023-05-23] MEDS: Torsemide 20 MG TAB PO SCH ×2 (05:03→15:06)
[2023-05-23] MEDS: Methocarbamol 500 MG TAB PO SCH ×2 (08:19→20:07)
[2023-05-23] MEDS: Budesonide 0.5 MG/2 ML NEB NEB SCH (08:19)
[2023-05-23] MEDS: cefTRIAXone\\ROCEPHIN 2 GM in Sodium Chloride 0.9% 100 ML IVPB SCH (08:19)
[2023-05-23] MEDS: Saccharomyces boulardii 250 MG CAP PO SCH (08:20)
[2023-05-23] MEDS: Ferrous Sulfate 325 MG TAB PO SCH (08:21)
[2023-05-23] MEDS: Apixaban 5 MG TAB PO SCH ×2 (08:21→20:07)
[2023-05-23] MEDS ORDERED: Budesonide 0.5 MG/2 ML NEB NEB PRN (10:27)
[2023-05-23] MEDS: Tamsulosin HCl 0.4 MG CAP PO SCH (20:07)
[2023-05-23] MEDS: Pregabalin 75 MG CAP PO SCH (20:07)
[2023-05-23] MEDS: Artificial Tear Sol 15 ML BOT EA EYE PRN (20:13)
[2023-05-24] MEDS: HYDROcodone/Acetaminophen 10/325 mg Tablet PO PRN ×3 (02:10→14:14)
[2023-05-24] MEDS: Artificial Tear Sol 15 ML BOT EA EYE PRN ×2 (03:52→08:25)
[2023-05-24] MEDS: Torsemide 20 MG TAB PO SCH ×2 (05:01→14:13)
[2023-05-24] MEDS: Saccharomyces boulardii 250 MG CAP PO SCH (08:24)
[2023-05-24] MEDS: cefTRIAXone\\ROCEPHIN 2 GM in Sodium Chloride 0.9% 100 ML IVPB SCH (08:24)
[2023-05-24] MEDS: Ferrous Sulfate 325 MG TAB PO SCH (08:24)
[2023-05-24] MEDS: Methocarbamol 500 MG TAB PO SCH ×2 (08:24→20:40)
[2023-05-24] MEDS: Apixaban 5 MG TAB PO SCH ×2 (08:24→20:39)
[2023-05-24] MEDS: Tamsulosin HCl 0.4 MG CAP PO SCH (20:39)
[2023-05-24] MEDS: HYDROcodone/Acetaminophen 5/325 mg Tablet PO PRN (20:39)
[2023-05-24] MEDS: Pregabalin 75 MG CAP PO SCH (20:40)
[2023-05-25] MEDS: HYDROcodone/Acetaminophen 5/325 mg Tablet PO PRN ×2 (02:25→12:40)
[2023-05-25] MEDS: Torsemide 20 MG TAB PO SCH ×2 (05:13→14:58)
[2023-05-25] MEDS: Ferrous Sulfate 325 MG TAB PO SCH (08:11)
[2023-05-25] MEDS: Methocarbamol 500 MG TAB PO SCH ×2 (08:11→20:16)
[2023-05-25] MEDS: cefTRIAXone\\ROCEPHIN 2 GM in Sodium Chloride 0.9% 100 ML IVPB SCH (08:11)
[2023-05-25] MEDS: Saccharomyces boulardii 250 MG CAP PO SCH (08:11)
[2023-05-25] MEDS: Apixaban 5 MG TAB PO SCH ×2 (08:11→20:16)
[2023-05-25] MEDS: Pregabalin 75 MG CAP PO SCH (20:15)
[2023-05-25] MEDS: Tamsulosin HCl 0.4 MG CAP PO SCH (20:16)
[2023-05-25] MEDS: HYDROcodone/Acetaminophen 10/325 mg Tablet PO PRN (23:53)
[2023-05-26] MEDS: HYDROcodone/Acetaminophen 10/325 mg Tablet PO PRN ×3 (04:05→19:24)
[2023-05-26] MEDS: Artificial Tear Sol 15 ML BOT EA EYE PRN (04:07)
[2023-05-26] MEDS: Torsemide 20 MG TAB PO SCH ×2 (06:05→13:55)
[2023-05-26] MEDS: Polyethylene Glycol 3350 17 GM Packet PO PRN (08:44)
[2023-05-26] MEDS: Saccharomyces boulardii 250 MG CAP PO SCH (08:45)
[2023-05-26] MEDS: Methocarbamol 500 MG TAB PO SCH ×2 (08:45→20:11)
[2023-05-26] MEDS: Apixaban 5 MG TAB PO SCH ×2 (08:45→20:11)
[2023-05-26] MEDS: Ferrous Sulfate 325 MG TAB PO SCH (08:45)
[2023-05-26] MEDS: Pregabalin 75 MG CAP PO SCH (20:10)
[2023-05-26] MEDS: Tamsulosin HCl 0.4 MG CAP PO SCH (20:11)
[2023-05-27] MEDS: HYDROcodone/Acetaminophen 10/325 mg Tablet PO PRN (02:51)
[2023-05-27] MEDS: Torsemide 20 MG TAB PO SCH ×2 (05:30→14:51)
[2023-05-27] MEDS: Artificial Tear Sol 15 ML BOT EA EYE PRN (05:52)
[2023-05-27] MEDS: Polyethylene Glycol 3350 17 GM Packet PO PRN (08:06)
[2023-05-27] MEDS: Apixaban 5 MG TAB PO SCH ×2 (08:07→20:31)
[2023-05-27] MEDS: Ferrous Sulfate 325 MG TAB PO SCH (08:07)
[2023-05-27] MEDS: Saccharomyces boulardii 250 MG CAP PO SCH (08:08)
[2023-05-27] MEDS: Methocarbamol 500 MG TAB PO SCH ×2 (08:08→20:31)
[2023-05-27] MEDS: Pregabalin 75 MG CAP PO SCH (20:29)
[2023-05-27] MEDS: Tamsulosin HCl 0.4 MG CAP PO SCH (20:31)
[2023-05-28] MEDS: HYDROcodone/Acetaminophen 10/325 mg Tablet PO PRN ×2 (02:08→19:10)
[2023-05-28] MEDS: Torsemide 20 MG TAB PO SCH ×2 (06:00→14:31)
[2023-05-28] MEDS: Ferrous Sulfate 325 MG TAB PO SCH (08:24)
[2023-05-28] MEDS: Saccharomyces boulardii 250 MG CAP PO SCH (08:25)
[2023-05-28] MEDS: Methocarbamol 500 MG TAB PO SCH ×2 (08:25→20:11)
[2023-05-28] MEDS: Apixaban 5 MG TAB PO SCH ×2 (08:25→20:12)
[2023-05-28] MEDS: Polyethylene Glycol 3350 17 GM Packet PO PRN (08:27)
[2023-05-28] MEDS: HYDROcodone/Acetaminophen 5/325 mg Tablet PO PRN (08:43)
[2023-05-28] MEDS: Tamsulosin HCl 0.4 MG CAP PO SCH (20:11)
[2023-05-28] MEDS: Pregabalin 75 MG CAP PO SCH (20:12)
[2023-05-29] MEDS: HYDROcodone/Acetaminophen 10/325 mg Tablet PO PRN ×3 (02:12→20:06)
[2023-05-29] MEDS: Torsemide 20 MG TAB PO SCH ×2 (05:04→14:03)
[2023-05-29 05:08] LABS: Hematocrit 36.4 % (42.0-52.0); Hemoglobin 11.6 g/dL (14.0-18.0); Platelet Count 306 10x3/uL (130-400)
[2023-05-29] MEDS: Polyethylene Glycol 3350 17 GM Packet PO PRN (07:58)
[2023-05-29] MEDS: Ferrous Sulfate 325 MG TAB PO SCH (07:59)
[2023-05-29] MEDS: Methocarbamol 500 MG TAB PO SCH ×2 (07:59→20:05)
[2023-05-29] MEDS: Saccharomyces boulardii 250 MG CAP PO SCH (07:59)
[2023-05-29] MEDS: Apixaban 5 MG TAB PO SCH ×2 (07:59→20:05)
[2023-05-29] MEDS: Pregabalin 75 MG CAP PO SCH (20:05)
[2023-05-29] MEDS: Tamsulosin HCl 0.4 MG CAP PO SCH (20:06)
[2023-05-30] MEDS: HYDROcodone/Acetaminophen 10/325 mg Tablet PO PRN ×3 (00:52→20:32)
[2023-05-30] MEDS: Torsemide 20 MG TAB PO SCH ×2 (05:21→15:09)
[2023-05-30] MEDS: Saccharomyces boulardii 250 MG CAP PO SCH (08:08)
[2023-05-30] MEDS: Methocarbamol 500 MG TAB PO SCH ×2 (08:08→20:32)
[2023-05-30] MEDS: Ferrous Sulfate 325 MG TAB PO SCH (08:09)
[2023-05-30] MEDS: Apixaban 5 MG TAB PO SCH ×2 (08:09→20:32)
[2023-05-30] MEDS: Polyethylene Glycol 3350 17 GM Packet PO PRN (08:50)
[2023-05-30] MEDS: HYDROcodone/Acetaminophen 5/325 mg Tablet PO PRN (12:29)
[2023-05-30] MEDS: Pregabalin 75 MG CAP PO SCH (20:32)
[2023-05-30] MEDS: Tamsulosin HCl 0.4 MG CAP PO SCH (20:32)
[2023-05-31] MEDS: HYDROcodone/Acetaminophen 10/325 mg Tablet PO PRN ×2 (00:32→20:38)
[2023-05-31] MEDS: Torsemide 20 MG TAB PO SCH ×2 (11:10→13:48)
[2023-05-31] MEDS: Apixaban 5 MG TAB PO SCH ×2 (11:10→20:37)
[2023-05-31] MEDS: Saccharomyces boulardii 250 MG CAP PO SCH (11:11)
[2023-05-31] MEDS: Ferrous Sulfate 325 MG TAB PO SCH (11:11)
[2023-05-31] MEDS: Methocarbamol 500 MG TAB PO SCH ×2 (11:11→20:37)
[2023-05-31 20:36] VITALS: TEMP 98
[2023-05-31] MEDS: Tamsulosin HCl 0.4 MG CAP PO SCH (20:37)
[2023-05-31] MEDS: Pregabalin 75 MG CAP PO SCH (20:37)
[2023-06-01] MEDS: HYDROcodone/Acetaminophen 10/325 mg Tablet PO PRN ×2 (01:25→06:22)
[2023-06-01] MEDS: Torsemide 20 MG TAB PO SCH (05:25)
[2023-06-01 07:14] VITALS: BP 126/71
[2023-06-01 07:40] VITALS: BMI 37.7
[2023-06-01] MEDS: Saccharomyces boulardii 250 MG CAP PO SCH (08:26)
[2023-06-01] MEDS: Ferrous Sulfate 325 MG TAB PO SCH (08:26)
[2023-06-01] MEDS: Apixaban 5 MG TAB PO SCH (08:26)
[2023-06-01] MEDS: Methocarbamol 500 MG TAB PO SCH (08:26)
== END 2023-06-01 11:07 | disposition home health service (06) | DRG 549 ==
LOC: MADMS 13:46
PROVIDERS: ADMIT Family Medicine; ATTEND Family Medicine
DX: M00.9 Pyogenic arthritis, unspecified (principal); I13.0 Hypertensive heart and chronic kidney disease with heart failure and stage 1 through stage 4 chronic kidney disease, or unspecified chronic kidney disease; I50.32 Chronic diastolic (congestive) heart failure; J44.1 Chronic obstructive pulmonary disease with (acute) exacerbation; Z79.2 Long term (current) use of antibiotics; R53.81 Other malaise; B35.9 Dermatophytosis, unspecified; N18.9 Chronic kidney disease, unspecified; Z79.01 Long term (current) use of anticoagulants; I48.91 Unspecified atrial fibrillation; G89.29 Other chronic pain; M54.9 Dorsalgia, unspecified; E78.5 Hyperlipidemia, unspecified; Z98.890 Other specified postprocedural states; Z88.8 Allergy status to other drugs, medicaments and biological substances; Z79.899 Other long term (current) drug therapy; I73.9 Peripheral vascular disease, unspecified; M19.90 Unspecified osteoarthritis, unspecified site; Z90.49 Acquired absence of other specified parts of digestive tract; Z82.49 Family history of ischemic heart disease and other diseases of the circulatory system; K59.00 Constipation, unspecified; N40.0 Benign prostatic hyperplasia without lower urinary tract symptoms
CPT/HCPCS: 36415; 36416; 71045; 80048; 80053; 85014; 85018; 85025; 85027; 85049; 86140; J0696; J3490; J7512; J7626